=== PATIENT | male | born 1990 | race Hispanic/Latino ===

== ENCOUNTER 2018-05-19 23:44 | Emergency (ER) | payer OTHER ==
[2018-05-20] MEDS ORDERED: Sodium Chloride 0.9% 1,000 ML IV STA (00:19)
--- NOTE | 2018-05-20 00:32 | ED PDOC ---
HPI: Abdomen Additional Complaint(s): 27 yo male with no significant PMHx presents to ER with complaints of multiple episodes of watery diarrhea and NBNB emesis associated with fever (101 F tmax at home) and bodyaches since 3 pm this afternoon. Patient reports sick contact with GI symptoms and influenza during . Patient did not have influenza vaccine this season. Denies any blood or mucus in stool. Denies cough, chest pain, dyspnea, headache or blurry vision. Patient recently stopped taking Lexapro about a week ago. PMD: none <Sultan Kimberlee - Last Filed: 05/20/18 03:38> <Siobhan Newby - Last Filed: 05/20/18 07:02> Time Seen by Provider: 05/19/18 23:47 Chief Complaint (Nursing): GI Problem Past Medical History Vital Signs: Last Vital Signs Temp 98.5 F 05/19/18 23:52 Pulse 145 H 05/19/18 23:52 Resp 20 05/19/18 23:52 BP 111/80 05/19/18 23:52 Pulse Ox 100 05/19/18 23:52 <Sultan Kimberlee - Last Filed: 05/20/18 03:38> Vital Signs: Last Vital Signs Temp 100.2 F H 05/20/18 02:39 Pulse 102 H 05/20/18 02:39 Resp 18 05/20/18 02:39 BP 111/80 05/19/18 23:52 Pulse Ox 99 05/20/18 02:39 <Siobhan Newby - Last Filed: 05/20/18 07:02> - Allergies Allergies/Adverse Reactions: Allergies Allergy/AdvReac Type Severity Reaction Status Date / Time cephalexin [From Keflex] Allergy RASH Verified 05/19/18 23:51 Review of Systems ROS Statement: Except As Marked, All Systems Reviewed And Found Negative Constitutional: Positive for: Fever, Chills ENT: Negative for: Ear Pain, Throat Pain Cardiovascular: Negative for: Chest Pain, Palpitations Respiratory: Negative for: Cough, Shortness of Breath Gastrointestinal: Negative for: Hematemesis Skin: Negative for: Rash Neurological: Negative for: Confusion, Altered Mental Status <Sultan Kimberlee - Last Filed: 05/20/18 03:38> Physical Exam - Physical Exam Appears: Positive for: Non-toxic, Uncomfortable (vomited during examination) Head Exam: Positive for: ATRAUMATIC, NORMOCEPHALIC Skin: Positive for: Normal Color, Warm. Negative for: Diaphoresis Neck: Positive for: Normal Cardiovascular/Chest: Positive for: Tachycardia. Negative for: Murmur Respiratory: Positive for: Normal Breath Sounds. Negative for: Crackles, Rales, Rhonchi, Respiratory Distress Gastrointestinal/Abdominal: Positive for: Bowel Sounds, Soft. Negative for: Tenderness, Guarding, Rebound Extremity: Positive for: Normal ROM. Negative for: Calf Tenderness Neurologic/Psych: Positive for: Alert, Oriented <Sultan Kimberlee - Last Filed: 05/20/18 03:38> - Laboratory Results Result Diagrams: 05/20/18 00:48 05/20/18 00:48 Interpretation Of Abn Labs: WBC 9.2 with left shift Interpretation Of Abnormal: elevated BUN 2/2 dehydration Urine dip results: Positive for: Ketones - ECG O2 Sat by Pulse Oximetry: 100 - Progress ED Course And Treament: 27 yo male presents with nausea, vomiting, diarrhea and fever since this afternoon. Plan: CBC CMP MG PHOS INFLUENZA IVF NS 1 L @1000 CC/HR Zofran Tylenol Re-evaluate Labs reviewed wbc 9.2 with left shift likely secondary to acute gastroenteritis and dehydration. Patient received 2 L NS. Mg and phosphate are low. Repleted. Patient still reports some abdominal pain, will order CT A/P to r/o infectious etiologies especially in the setting of elevated neutrophils. Plan d/w Dr. Newby <Sultan Kimberlee - Last Filed: 05/20/18 03:38> - Laboratory Results Result Diagrams: 05/20/18 00:48 05/20/18 00:48 <Siobhan Newby - Last Filed: 05/20/18 07:02> Medical Decision Making Medical Decision Making: Patient seen and evaluated at bedside with resident, including HPI and exam. Agree with assessment, plan and discharge. 0658 CT Abdomen/Pelvis Findings: Mild diffuse thickening of the colon. The liver is of uniform attenuation without mass or defect. There is no intra or extrahepatic biliary ductal dilatation. The spleen is normal. The gallbladder is within normal limits. The pancreas is of normal contour and attenuation characteristics. There is no evidence of adrenal mass. Both kidneys demonstrate prompt and equal nephrograms. The kidneys are normal in size, shape and configuration. There is no evidence of renal or ureteral mass. No renal or ureteral calculi are identified. There is no hydroureter or hydronephrosis. No evidence for appendicitis. There is no samll bowel wall thickening. No evidence for small or large bowel obstruction. There is no evidence of abdominal ascites or lymphadenopathy. There is no evidence of intrinsic or extrinsic bladder mass. There is no pelvic ascites or lymphadenopathy. Images of the lung bases show no evidence of pleural or parenchymal mass. There are no pleural effusions. The bony structures are free of lytic or blastic lesions. IMPRESSION: Uncomplicated colitis. [address] findings, and states his symptoms are better. Patient to be discharged home with prescription for Zofran ODT (3 day supply) and informed to follow up with PMD in 2-3 days. Instructed to return to ER if symptoms worsen or new symptoms arise. Scribe Attestation: Documented by Mariann Cruz, acting as a scribe for Siobhan Newby MD. Provider Scribe Attestation: All medical record entries made by the Scribe were at my direction and personally dictated by me. I have reviewed the chart and agree that the record accurately reflects my personal performance of the history, physical exam, medical decision making, and the department course for this patient. I have also personally directed, reviewed, and agree with the discharge instructions and disposition. <Siobhan Newby - Last Filed: 05/20/18 07:02> Disposition <Sultan Kimberlee - Last Filed: 05/20/18 03:38> - Disposition Disposition: Routine/Home Disposition Time: 07:02 <Siobhan Newby - Last Filed: 05/20/18 07:02> - Disposition Condition: STABLE Forms: [employer] ([place])
[2018-05-20 01:09] LABS: BASO % 0.3 % (0.0-2.0); EOS % 0.3 % (0.0-4.0); HEMOGLOBIN 14.8 g/dL (12.0-16.0); LYMPH # 0.3 K/uL (1.0-4.3); LYMPH % 2.9 % (20.0-40.0); MEAN CELL VOLUME 88.6 fl (81.0-99.0); MEAN CORPUSCULAR HEMOGLOBIN 30.8 pg (27.0-31.0); MEAN CORPUSCULAR HGB CONC 34.7 g/dL (33.0-37.0); MEAN PLATELET VOLUME 7.6 fl (7.2-11.7); MONO # 0.5 K/uL (0.0-0.8); NEUT # 8.4 K/uL (1.8-7.0); NEUT % 91.5 % (50.0-75.0); PLATELET COUNT 265 K/uL (130-400); RBC 4.81 Mil/uL (3.80-5.20); WHITE BLOOD COUNT 9.2 K/uL (4.8-10.8)
[2018-05-20 01:20] LABS: ALB/GLOB RATIO 1.4 (1.0-2.1); ALT/SGPT 25 U/L (9-52); AST/SGOT 29 U/L (14-36); BLOOD UREA NITROGEN 28 mg/dl (7-17); CALCIUM 9.8 mg/dL (8.4-10.2); GFR NON-AFRICAN AMERICAN 59
[2018-05-20] MEDS ORDERED: Magnesium Sulfate 2 gm/50 ml 2 GM/50 ML BAG IVPB STA (02:29)
[2018-05-20] MEDS ORDERED: Sodium Chloride 0.9% 1,000 ML IV SCH (02:30)
[2018-05-20] MEDS ORDERED: Magnesium Sulfate 2 gm/50 ml 2 GM/50 ML BAG ONE (02:35)
[2018-05-20 02:39] VITALS: PULSE 102; RESP 18
[2018-05-20 03:06] LABS: BANDS 1 % (0-2); BASOPHIL 1 % (0-2); EOSINOPHIL 1 % (0-7); LYMPHOCYTE 3 % (20-50); MONOCYTE 8 % (0-10); NEUTROPHIL 86 % (42-75); PLATELET ESTIMATE NORMAL (NORMAL); TOTAL CELLS COUNTED 100
[2018-05-20 03:08] LABS: SPHEROCYTES SLIGHT; TOXIC GRANULATION PRESENT
[2018-05-20 03:18] LABS: SQUAMOUS EPITHIAL < 1 /hpf (0-5); URINE BACTERIA RARE (<OCC); URINE BILIRUBIN NEGATIVE (NEGATIVE); URINE BLOOD NEGATIVE (NEGATIVE); URINE CLARITY SLIGHTY-CLOUDY (Clear); URINE COLOR YELLOW (YELLOW); URINE GLUCOSE (UA) NEG (NEGATIVE); URINE LEUKOCYTE ESTERASE NEG Leu/uL (Negative); URINE PROTEIN NEGATIVE (NEGATIVE); URINE UROBILINOGEN 0.2-1.0 mg/dL (0.2-1.0)
[2018-05-20] MEDS ORDERED: Iohexol 240 (50 ml) PO ONE (03:22)
[2018-05-20 03:33] VITALS: O2SAT 100
[2018-05-20] MEDS ORDERED: Iohexol 240 (50 ml) ONE (03:38)
[2018-05-20] MEDS ORDERED: Sodium Chloride 0.9% 50 ML IV ONE (05:35)
[2018-05-20] MEDS ORDERED: Iohexol 300 100 ML IJ ONE (05:35)
[2018-05-20 05:57] VITALS: BP 96/56; TEMP 98.5
--- NOTE | 2018-05-20 10:13 | CT ---
Date of service: 05/20/2018 PROCEDURE: CT Abdomen and Pelvis. HISTORY: continued abdominal pain and left shift COMPARISON: None. TECHNIQUE: Contiguous axial images of the abdomen and pelvis performed intravenous injection of 90 cc Omnipaque 300 contrast material.. Additional 2D sagittal and coronal reformats generated. Radiation dose: Total exam DLP = 331.68 mGy-cm. This CT exam was performed using one or more of the following dose reduction techniques: Automated exposure control, adjustment of the mA and/or kV according to patient size, and/or use of iterative reconstruction technique. FINDINGS: LOWER THORAX: Small hiatal hernia. Minimal passive/dependent type atelectasis both posterior lower lung shell. No focal consolidation or effusion. LIVER: Liver exhibits normal size. Moderate diffuse fatty hepatic infiltration. No obvious hepatic mass collection or calcification. GALLBLADDER AND BILE DUCTS: Unremarkable. PANCREAS: Unremarkable. No gross lesion or ductal dilatation. SPLEEN: Spleen upper limits of normal measuring approximately 12 cm in greatest CC dimension. ADRENALS: No adrenal lesions seen.. KIDNEYS AND URETERS: Kidneys demonstrate symmetric nephrograms. No evidence of nephrolithiasis or hydronephrosis.. VASCULATURE: Unremarkable. No aortic aneurysm. No aortic atherosclerotic calcification or mural plaque present. BOWEL: Evaluation the bowel is somewhat limited due to the lack of oral contrast material. The stomach is distended with oral contrast material and air. There are a few mildly distended loops of small bowel nonspecific. No evidence of acute mechanical bowel obstruction with oral contrast material seen extending into the colon to the level of the cecum admixing with unopacified stool. There appears to be collapse with wall thickening of the most the remaining colon; findings likely due to incomplete distention and peristalsis with some unopacified stool however possibility of mild colitis cannot be exclude correlation recommended. There are also a few scattered colonic diverticula. APPENDIX: Appendix is not seen with complete certainty on this study however no radiographic evidence appendicitis. PERITONEUM: Unremarkable. No free fluid. No free air. Small fat containing umbilical hernia. LYMPH NODES: There are multiple small scattered nonspecific mesenteric lymph nodes. Findings the of may represent a mild mesenteric adenitis. BLADDER: The urinary bladder is physiologically distended. No evidence of intraluminal urinary bladder calculi. REPRODUCTIVE: Unremarkable. BONES: The visualized lower thoracic and lumbar segments unremarkable. There are no acute compression fractures no retropulsed fragments. OTHER FINDINGS: None. IMPRESSION: Fatty hepatic infiltration. There is relative collapse with wall thickening of the distal transverse descending and sigmoid colon remaining colon; findings likely due to incomplete distention and peristalsis with some unopacified stool however possibility of mild colitis cannot be exclude correlation recommended. Few scattered colonic diverticula. Scattered relatively small mesenteric lymph nodes; rule out mesenteric adenitis
== END 2018-05-20 07:19 | disposition home or self-care (01) ==
LOC: EDSEX 23:44 → H.ER 23:44
DX: R10.9 Unspecified abdominal pain (principal); K52.9 Noninfective gastroenteritis and colitis, unspecified; E86.0 Dehydration
CPT/HCPCS: 74177; 80053; 81003; 83735; 84100; 85025; 87804; 96361; 96365; 96375; 96376; 99284; J1885; J2405; J7030; Q9966; Q9967